=== PATIENT | female | born 1985 | race Caucasian/White ===

== ENCOUNTER 2016-11-02 07:55 | Inpatient (IN) | payer BC, OTHER ==
[~2016-11-02] VITALS: Ht 165.1 cm; Wt 45.4 kg
[2016-11-02 15:15] VITALS: BP 127/80
--- NOTE | 2016-11-02 15:30 | NUR ---
ADMISSION NOTE: 31 yo female admitted to [facility] with Heroin dependence. NKA. Pt is alert and oriented X4. Color good, skin warm and dry. Respirations even and unlabored. Initial vital signs: B/P 127/80 P: 72 T: 98.9 Pulse Ox: 100% RR: 16 Initial COWS 3 Pt is 5feet 5 inches tall and weighs 100 pounds. Skin is intact. Pt denies seizure history. Pt denies any psychiatric or medical conditions. No family history of substance abuse. Pt denies having a PCP. Pt presently without symptoms of withdrawal. Dr. Davis notified of admission. Substance use history: Heroin 1.12 g IM daily for 3 years. Last use 11-02-16 @ 1300 .28gms
[2016-11-02 15:39] LABS: *URINE HCG, QUAL NEGATIVE (NEGATIVE)
[2016-11-02] MEDS ORDERED: [UNRECOGNIZED DRUG - OTHER] (15:53)
[2016-11-02 15:55] LABS: *AMPHETAMINE, URINE NEGATIVE (NEGATIVE); *BARBITURATE, URINE NEGATIVE (NEGATIVE); *CANNABINOID, URINE NEGATIVE (NEGATIVE); *COCCAINE, URINE NEGATIVE (NEGATIVE); *OPIATE, URINE POSITIVE (NEGATIVE); *PHENCYCLIDINE SCREEN,URINE NEGATIVE (NEGATIVE)
[2016-11-02] MEDS ORDERED: IBUPROFEN 600 MG TABLET PO PRN (16:45)
[2016-11-02] MEDS ORDERED: MAGNESIUM HYDROXIDE 30 ML LIQUID UDC PO PRN (16:45)
[2016-11-02] MEDS ORDERED: LOPERAMIDE HCL 2 MG CAPSULE PO PRN ×2 (16:45)
[2016-11-02] MEDS ORDERED: diphenhydrAMINE 50 MG CAPSULE PO PRN (16:45)
[2016-11-02] MEDS ORDERED: METHOCARBAMOL 750 MG TABLET PO PRN (16:45)
[2016-11-02] MEDS ORDERED: ONDANSETRON ODT 4 MG TAB.RAPDIS SL PRN (16:45)
[2016-11-02] MEDS ORDERED: BUPRENORPHINE HCL 2 MG TAB.SUBL SL PRN (16:45)
[2016-11-02] MEDS ORDERED: MAG HYDROX/AL HYDROX/SIMETH 30 ML LIQUID UDC PO PRN (16:45)
[2016-11-02] MEDS ORDERED: CLONIDINE HCL 0.1 MG TABLET PO PRN (16:45)
[2016-11-02] MEDS ORDERED: MIRALAX 17 GM POWD.PACK PO PRN (16:45)
[2016-11-02] MEDS ORDERED: ACETAMINOPHEN 325 MG TABLET PO PRN (16:45)
[2016-11-02] MEDS ORDERED: HYDROXYZINE PAMOATE 25 MG CAPSULE PO PRN (16:45)
[2016-11-02 17:24] VITALS: BP 100/65
--- NOTE | 2016-11-02 18:47 | NUR ---
END OF SHIFT NOTE: Report given to shift supervisor melting nurse. 31 yo female admitted to [facility] with Heroin dependence. NKA. Pt is alert and oriented X4. Color good, skin warm and dry. Respirations even and unlabored. Pt without symptoms of withdrawal at this time. VSS COWS 3 @ 1600. Pt placed on prn's only. Safety precautions observed. Call light within reach.
--- NOTE | 2016-11-02 19:10 | NUR ---
Start of Shift Patient Received. Patient is in her room, awake, alert and verbally responsive. Breathing even and non labored. No signs of pain or discomfort noted. Patient is a 31 year old female, admitted earlier today 11/02/16 for Opiate Dependence, under the care of Dr. Davis, with current PRN Medications available for increased signs and symptoms of withdrawal. Patient verbalizes no known allergies, full code, following a regular diet, skin is noted intact, on fall precautions. No Past Medical History verbalized. Labs awaiting to be drawn. admitting COWS noted to be 3. No PRN medications administered. All needs attended to promptly. Will continue plan of care as ordered.
[2016-11-02 20:34] VITALS: BP 111/72
[2016-11-02 21:42] LABS: BASOPHILS # (AUTO) 0.1 K/uL (0.0-0.2); BASOPHILS % (AUTO) 0.9 % (0.0-2.0); EOSINOPHILS # (AUTO) 0.1 K/uL (0.0-0.7); EOSINOPHILS % (AUTO) 1.6 % (0.0-7.0); HEMATOCRIT 39.7 % (37.0-47.0); LYMPHOCYTES # (AUTO) 3.4 K/uL (0.8-4.8); LYMPHOCYTES % (AUTO) 38.6 % (20.5-51.5); MEAN CORPUSCULAR HEMOGLOBIN 29.2 uug (27.0-31.0); MEAN CORPUSCULAR HGB CONC 33 g/dL (32.0-37.0); MEAN CORPUSCULAR VOLUME 88.9 fL (81.0-99.0); MONOCYTES # (AUTO) 0.9 K/uL (0.1-1.30); MONOCYTES % (AUTO) 10.6 % (0.0-11.0); NEUTROPHILS # (AUTO) 4.4 K/uL (1.8-8.9); NEUTROPHILS % (AUTO) 48.3 % (38.5-71.5); PLATELET COUNT (AUTO) 197 K/uL (150-450); RED BLOOD CELL COUNT(AUTO) 4.46 MIL/uL (4.20-5.40); RED CELL DISTRIBUTION WIDTH 12.9 % (11.5-14.5); WHITE BLOOD COUNT (AUTO) 8.9 K/uL (4.0-11.2)
[2016-11-02] MEDS ORDERED: DICYCLOMINE HCL 20 MG TABLET PO PRN (21:45)
[2016-11-02 21:50] LABS: ETHANOL < 3 MG/DL (0-0)
[2016-11-02] MEDS ORDERED: DICYCLOMINE HCL 20 MG TABLET ONE (21:58)
[2016-11-02 22:05] LABS: ALANINE AMINOTRANSFERASE 22 U/L (14-59); ALBUMIN 3.7 g/dL (3.4-5.0); ALKALINE PHOSPHATASE 79 U/L (50-136); ASPARTATE AMINOTRANSFERASE 28 U/L (15-37); BILIRUBIN,TOTAL 0.3 mg/dL (0.2-1.0); CALCIUM 8.8 mg/dL (8.5-10.1); CARBON DIOXIDE 32 mmol/L (21-32); CHLORIDE 104 mmol/L (98-107); CREATININE 0.8 mg/dL (0.6-1.3); GFR 83 mL/min (>60); GLUCOSE 104 mg/dL (74-106); MAGNESIUM 1.8 mg/dL (1.8-2.4); POTASSIUM 4.8 mmol/L (3.5-5.1); SODIUM SERUM 141 mmol/L (136-145); TOTAL PROTEIN, SERUM 7.9 g/dL (6.4-8.2); UREA NITROGEN, BLOOD 11 mg/dL (7-18)
[2016-11-02 22:06] LABS: THYROID STIMULATING HORMONE 5.224 mIU/mL (0.358-3.740)
[2016-11-02 22:10] LABS: HIV-1 p24 ANTIGEN NON REACTIVE (NONREACTIVE); HIV-1/2 ANTIBODY NON REACTIVE (NONREACTIVE)
--- NOTE | 2016-11-02 22:30 | NUR ---
PRN Medication administration Patient noted with increased anxiety, stomach cramps, and leg cramps. PRN Robaxin, Bentyl, and Vistaril administered. Will continue to monitor for effectiveness of medication.
--- NOTE | 2016-11-02 23:30 | NUR ---
PRN Medication Reassessment Patient is in bed sleeping. Breathing even and non labored. No signs of pain or discomfort noted. PRN Bentyl, Robaxin, and Vistaril noted to be effective. Patient continues to sleep well with no interruptions. Will continue to monitor.
[2016-11-03 00:10] VITALS: BP 94/56
[2016-11-03 04:10] VITALS: BP 95/59
--- NOTE | 2016-11-03 07:33 | NUR ---
End of Shift Patient is in bed sleeping. Breathing even and non labored. No signs of pain or discomfort noted. Patient is a 31 year old female, admitted earlier today 11/02/16 for Opiate Dependence, under the care of Dr. Davis, with current PRN Medications available for increased signs and symptoms of withdrawal. Patient verbalizes no known allergies, full code, following a regular diet, skin is noted intact, on fall precautions. No Past Medical History verbalized. Labs Drawn will endorse for morning shift to follow up. PRN Vistaril, bentyl, and Robaxin given for increased signs and symptoms of withdrawal. PRN Medications noted to be effective. All needs attended to promptly. Will endorse to continue plan of care as ordered.
--- NOTE | 2016-11-03 07:55 | NUR ---
START OF SHIFT Client Received in her room, awake, alert and verbally responsive. She appears anxious, goosebumps, dilated pupils, moist skin, chills, yawning and slight tremors noted, Client is a 31 year old female, admitted to [facility] on 11/02/16 for Opiate withdrawal, Subutex 3 day taper to start today at 0900. Client reports no known allergies, full code, following a regular diet, skin is noted intact, with healed trach oconnor. She is on fall precautions. No Past Medical History reported. THS level is high, MD aware. last COWS 1. No PRN medications administered overnight, she slept 4 hrs. Call light within reach. Will continue to monitor.
[2016-11-03 08:55] VITALS: BP 120/76
[2016-11-03] MEDS ORDERED: DOCUSATE SODIUM 250 MG CAPSULE PO SCH (09:00)
[2016-11-03] MEDS ORDERED: BUPRENORPHINE HCL 2 MG TAB.SUBL SL SCH (09:00)
[2016-11-03] MEDS ORDERED: TUBERCULIN,PURIF.PROT.DERIV. 5 TU/0.1 ML TEST ID ONE (09:00)
--- NOTE | 2016-11-03 11:14 | NUR ---
AMA NOTE Client left AMA, she refused to comply with treatment. Client was educated about the risks and consequences of leaving AMA, client verbalized understanding, but was adamant about leaving. Multiple staff members including doctor, client liaison and primary nurse attempted to reason with client without any success, she stated, "Once I set my mind to leave, I never stay for detox." Vitals WNL's, skin intact, with healed track oconnor on bilateral forearms. Client denies any SI/HI. Client's psychiatrist and MD were notified. Client was given a list of community resources, AMA forms explained and signed. All belongings returned to client and she left facility AMA on 11/03/16 @ 1114..
[2016-11-04] MEDS ORDERED: BUPRENORPHINE HCL 2 MG TAB.SUBL SL SCH (09:00)
[2016-11-05] MEDS ORDERED: BUPRENORPHINE HCL 2 MG TAB.SUBL SL SCH (09:00)
[2016-11-06 03:09] LABS: HCV AB <0.1 s/co ratio (0.0-0.9); HEPATITIS B CORE AB, IgM Negative (Negative); HEPATITIS B SURFACE AG Negative (Negative)
== END 2016-11-03 11:14 | disposition left against medical advice (07) | DRG 894 ==
LOC: SRC 14:14
PROVIDERS: ADMIT Internal Medicine; ATTEND Internal Medicine
PROC: HZ2ZZZZ Detoxification Services for Substance Abuse Treatment (ICD-10-PCS; principal; 2016-11-02)
PROC: HZ51ZZZ Individual Psychotherapy for Substance Abuse Treatment, Behavioral (ICD-10-PCS; 2016-11-03)
DX: F11.23 Opioid dependence with withdrawal (principal); Z65.3 Problems related to other legal circumstances; F17.210 Nicotine dependence, cigarettes, uncomplicated
CPT/HCPCS: 80307; 80361; 83735; 84443; 84703; 85025; 86592; 86705; 86803; 87340; 87806; G6040-TC